=== PATIENT | female | born 1950 | race Caucasian/White ===

== ENCOUNTER 2019-04-15 08:43 | Emergency (ER) | payer OTHER ==
[~2019-04-15] VITALS: Ht 160 cm; Wt 65.8 kg
[2019-04-15 09:32] VITALS: Ht 160 cm; Wt 65.8 kg
[2019-04-15 12:50] VITALS: BP 178/98
== END 2019-04-15 12:50 | disposition home or self-care (01) ==
LOC: ED 08:43
DX: K04.7 Periapical abscess without sinus (principal); R51 Headache; I10 Essential (primary) hypertension